=== PATIENT | male | born 1950 | race Caucasian/White ===

== ENCOUNTER 2018-10-16 09:26 | Inpatient (IN) | payer MEDICARE, MEDICAID ==
[2018-10-16] VITALS (15 sets, daily range): BP systolic 91–122; BP diastolic 42–86
[~2018-10-16] VITALS: Ht 177.8 cm; Wt 83.0 kg
[2018-10-16 10:17] LABS: HEMATOCRIT 51.1 % (42.0-52.0); MEAN CORPUSCULAR HEMOGLOBIN 33.1 pg (28.0-32.0); MEAN CORPUSCULAR VOLUME 99.4 fL (80.0-94.0); PLATELET 271 x1000/uL (130-400); RED BLOOD CELL COUNT 5.14 mill/uL (4.7-6.1); RED CELL DISTRIBUTION WIDTH 13.9 % (11.6-14.6)
[2018-10-16 10:23] LABS: CHLORIDE 103 mEq/L (98-107)
[2018-10-16 10:26] LABS: INR 1.1; PARTIAL THROMBOPLASTIN TIME 28.6 sec (23.4-31.0); PROTHROMBIN TIME 10.7 sec (9.1-11.1)
[2018-10-16] MEDS ORDERED: METO1TAB26 PO (11:26)
[2018-10-16] MEDS ORDERED: CLOP75TA16 PO (11:26)
[2018-10-16] MEDS ORDERED: QUIN40TA14 PO (11:26)
[2018-10-16] MEDS ORDERED: ASPI-1159 PO (11:26)
[2018-10-16] MEDS ORDERED: ALLO300T2 PO (11:26)
[2018-10-16] MEDS ORDERED: DICL75TA5 PO (11:26)
[2018-10-16] MEDS ORDERED: ATOR80TA PO (11:26)
[2018-10-16] MEDS ORDERED: LIDOCAINE HCL 1% 20ML VIAL (Pyxis) INJ ONE (13:05)
[2018-10-16] MEDS ORDERED: IODIXANOL 320MG/ML 200ML BOTTLE ONE (13:07)
[2018-10-16] MEDS ORDERED: MIDAZOLAM HCL 2 MG/2 ML VIAL ONE (13:15)
[2018-10-16] MEDS ORDERED: FENTANYL CITRATE/PF 50MCG/ML 2ML VIAL ONE (13:15)
[2018-10-16] MEDS ORDERED: IOHEXOL-300 100 ML BOTTLE ONE ×2 (13:49→14:07)
[2018-10-16] MEDS ORDERED: HEPARIN SODIUM 1,000 UNIT/1ML VIAL IV ONE ×2 (14:08→14:13)
[2018-10-16] MEDS ORDERED: ACETAMINOPHEN 325MG TABLET PO PRN ×2 (15:00→16:00)
[2018-10-16] MEDS ORDERED: ATROPINE SULFATE 1MG/10ML SYR IV PRN (15:00)
[2018-10-16] MEDS ORDERED: MORPHINE SULFATE 4 MG/ML CPJ (NOT FOR IM USE) IV PRN (15:00)
[2018-10-16] MEDS ORDERED: ONDANSETRON HCL 4MG/2ML INJ IV PRN (15:00)
[2018-10-16] MEDS ORDERED: CLONIDINE 0.1MG TABLET PO PRN (16:00)
[2018-10-16] MEDS ORDERED: HYDROCODONE/ACETAMINOPHEN 5/325MG TABLET PO PRN (16:00)
[2018-10-16] MEDS ORDERED: IPRATROPIUM/ALBUTEROL 0.5-3(2.5)MG/3ML NEB HHN PRN (16:00)
[2018-10-16] MEDS ORDERED: ATORVASTATIN CALCIUM 40MG TABLET PO SCH (21:00)
[2018-10-16] MEDS: BACLOFEN 10MG TABLET PO SCH (21:15)
[2018-10-16] MEDS: CARVEDILOL 3.125 MG TABLET PO SCH (22:11)
[2018-10-17] VITALS (12 sets, daily range): BP systolic 90–120; BP diastolic 56–72
[2018-10-17 05:47] LABS: BASOPHILS % 0.7 % (0.0-2.0); EOSINOPHILS % 3.6 % (0.0-5.0); HEMOGLOBIN. 15.5 g/dL (14.0-18.0); MEAN CORPUSCULAR HEMOGLOBIN 33.1 pg (28.0-32.0); MEAN CORPUSCULAR VOLUME 98.4 fL (80.0-94.0); MEAN PLATELET VOLUME 8.4 fl (7.4-10.4); NEUTROPHILS % 69.7 % (40.0-76.0); PLATELET 225 x1000/uL (130-400); RED BLOOD CELL COUNT 4.68 mill/uL (4.7-6.1); RED CELL DISTRIBUTION WIDTH 13.7 % (11.6-14.6)
[2018-10-17] MEDS: BACLOFEN 10MG TABLET PO SCH (06:02)
[2018-10-17 06:05] LABS: CHLORIDE 104 mEq/L (98-107)
[2018-10-17 06:14] LABS: LDL CHOLESTEROL 64 mg/dL (5-100)
[2018-10-17 06:17] LABS: HDL CHOLESTEROL 49 mg/dL (40-59)
[2018-10-17] MEDS ORDERED: CLOPIDOGREL 75MG TABLET PO SCH (09:00)
[2018-10-17] MEDS: CARVEDILOL 3.125 MG TABLET PO SCH (09:00)
[2018-10-17] MEDS ORDERED: ASPIRIN 81MG TABLET PO SCH (09:00)
== END 2018-10-17 13:45 | disposition home or self-care (01) | DRG 247 ==
LOC: CCL 09:26 → 3WST 09:27
PROVIDERS: ADMIT Specialist; ATTEND Specialist
PROC: 027135Z Dilation of Coronary Artery, Two Arteries with Two Drug-eluting Intraluminal Devices, Percutaneous Approach (ICD-10-PCS; principal; 2018-10-16)
DX: I25.119 Atherosclerotic heart disease of native coronary artery with unspecified angina pectoris (principal); I10 Essential (primary) hypertension; E78.5 Hyperlipidemia, unspecified; Z95.1 Presence of aortocoronary bypass graft; Z98.61 Coronary angioplasty status
CPT/HCPCS: 36415; 80048; 80061; 83036; 85027; 85347; 92928; 93005; 93458; C1725; C1760; C1769; C1874; C1887; C1893; J1644; J2250; J3010; J3490; Q9967